=== PATIENT | female | born 1990 | race Two or more races ===

== ENCOUNTER 2018-12-22 12:40 | Emergency (ER) | payer OTHER ==
[~2018-12-22] VITALS: Ht 170.2 cm; Wt 114.3 kg
--- NOTE | 2018-12-22 12:46 | NUR ---
PT COLE FROM HOME OF S/I, PER REPORT SHE WAS TRYING TO HURT HER DAUGHTER/MOM, PT TO BED 13, SI PRECAUTIONS STARTED, PT NOT ANSWERING QUESTIONS APPROPRIETY, -SOB, NAD NOTED, PT ON MONTIOR, PENDING ER PROVIDER BIN, WILL CALL NURSING SUP FOR SITTER
--- NOTE | 2018-12-22 12:50 | NUR ---
[facility]ET[facility],HOUSE SUP, CALLED FOR A SITTER
[2018-12-22 13:42] LABS: BASOPHILS % (AUTO) 0.5 % (0.0-2.0); EOSINOPHILS % (AUTO) 0.1 % (0.0-6.0); HEMATOCRIT 40 % (33-45); HEMOGLOBIN 13.4 g/dL (11.5-14.8); LYMPHOCYTES # (AUTO) 1.5 /CMM (0.8-4.8); LYMPHOCYTES % (AUTO) 15.3 % (20.0-44.0); MEAN CORPUSCULAR HGB CONC 34 g/dl (31.0-36.0); MEAN CORPUSCULAR VOLUME 85 fL (82-100); MONOCYTES # (AUTO) 1.1 /CMM (0.1-1.30); MONOCYTES % (AUTO) 11.6 % (2.0-12.0); NEUTROPHILS # (AUTO) 7.1 /CMM (1.8-8.9); NEUTROPHILS % (AUTO) 72.5 % (43.0-81.0); PLATELET COUNT (AUTO) 327 /CMM (150-450); RED BLOOD CELL COUNT(AUTO) 4.67 MIL/uL (4.0-5.2); WHITE BLOOD COUNT (AUTO) 9.7 K/uL (4.3-11.0)
--- NOTE | 2018-12-22 13:44 | NUR ---
SITTER AT BEDSIDE, ALL BELONGINGS IN UTILITY ROOM FOR S/I PRECAUTIONS
[2018-12-22 13:54] LABS: APPEARANCE,URINE Clear (CLEAR); BILIRUBIN,URINE SMALL (NEGATIVE); BLOOD, URINE Small Ery/uL (NEGATIVE); COLOR,URINE Yellow (YELLOW); KETONES,URINE 40 (NEGATIVE); LEUKOCYTE ESTERASE ,URINE Negative (NEGATIVE); NITRITE, URINE Negative (NEGATIVE); PH,URINE 5.5 (5.0-8.0); PROTEIN,URINE 100 mg/dl (NEGATIVE); UGLUCOSE Negative (NEGATIVE); UROBILINOGEN,URINE 0.2 EU/dL (0.2)
[2018-12-22 13:56] LABS: BACTERIA,URINE Few /HPF (None Seen); SQUAMOUS EPITHELIAL CELL,UR Few /HPF (None Seen)
[2018-12-22 13:57] LABS: CALCIUM, SERUM 9.2 mg/dL (8.5-10.1); CARBON DIOXIDE 26 mmol/L (21-32); CHLORIDE 102 mmol/L (98-107); CREATININE 0.7 mg/dL (0.6-1.3); GLUCOSE 89 mg/dL (74-106); POTASSIUM 3.6 mmol/L (3.5-5.1); SODIUM SERUM 140 mmol/L (136-145); UREA NITROGEN, BLOOD 11 mg/dL (7-18)
[2018-12-22 14:10] LABS: ALANINE AMINOTRANSFERASE 84 U/L (12-78); ALBUMIN 4.1 g/dL (3.4-5.0); ALKALINE PHOSPHATASE 76 U/L (46-116); ASPARTATE AMINOTRANSFERASE 46 U/L (15-37); BILIRUBIN,DIRECT 0.1 mg/dL (0.0-0.2); BILIRUBIN,TOTAL 0.4 mg/dL (0.2-1.0); SALICYLATE 3.6 mg/dL (2.8-20.0); TOTAL PROTEIN, SERUM 8.1 g/dL (6.4-8.2)
[2018-12-22 14:11] LABS: ACETAMINOPHEN 0 ug/ml (10-30); ALCOHOL, BLOOD < 3 mg/dL (0-0)
--- NOTE | 2018-12-22 14:19 | NUR ---
REPORT REC'D FROM MERRICK BERGERON FOR BAKARI.
--- NOTE | 2018-12-22 14:35 | NUR ---
PT APPEARS ANXIOUS. PT IS SITTING UP IN THE BED AND IS CONNECTED TO THE MONITOR. PT IS IN ONE [place]LON RESTRAINT ON RT WRIST. SITTER IS AT THE BEDSIDE AND PT'S VSS. RESP EVEN AND UNLABORED. PT IS NOT CLEARED FOR EVAL AT THIS TIME.
--- NOTE | 2018-12-22 15:00 | NUR ---
PT STATED THAT SHE HAD TO USE THE BATHROOM. WAS AMBULATED TO THE BATHROOM AND RETURNED TO ER 13 AND WAS PLACED BACK ON LT WRIST RESTRAINT.
--- NOTE | 2018-12-22 15:34 | NUR ---
CALLED DIETARY RE: FOOD TRAY FOR PT.
[2018-12-22] MEDS ORDERED: LORAZEPAM INJ 2 MG/ML VIAL ONE (15:59)
[2018-12-22] MEDS ORDERED: LORAZEPAM INJ 2 MG/ML VIAL IM ONE (16:00)
--- NOTE | 2018-12-22 16:02 | NUR ---
PT STATED THAT SHE HAS TO USE THE BATHROOM. LT WRIST RESTRAINT REMOVED AND PT AMBULATED TO THE BATHROOM WITH A STEADY GAIT.
--- NOTE | 2018-12-22 16:12 | NUR ---
PT RETURNED TO ER 13 AND WAS PLACED BACK ON THE LT WRIST RESTRAINT.
--- NOTE | 2018-12-22 16:19 | NUR ---
PT APPEARS TO BE RESTING COMFORTABLY. PT STATED THAT SHE IS FEELING MUCH BETTER.
--- NOTE | 2018-12-22 17:15 | NUR ---
PT AMBULATED TO THE BATHROOM WITH A STEADY GAIT. PT RETURNED TO ER 13 AND WAS PLACED BACK IN THE LT WRIST RESTRAINT.
--- NOTE | 2018-12-22 18:14 | NUR ---
DIETARY WAS CALLED AND DINNER TRAY WAS ORDERED.
--- NOTE | 2018-12-22 18:14 | NUR ---
KHURRAM OWEN ARRIVED AND IS REVIEWING THE PT'S CHART.
--- NOTE | 2018-12-22 19:15 | NUR ---
REPORT GIVEN TO MERRICK SPANGLER FOR BAKARI.
--- NOTE | 2018-12-22 19:16 | NUR ---
KHURRAM OWEN IS AT THE BEDSIDE SPEAKING TO THE PT.
--- NOTE | 2018-12-22 19:45 | NUR ---
PT WENT TO THE BATHROOM. RESTRAINTS RELEASED. PT CALM AND NO AGITATION OBSERVED.
--- NOTE | 2018-12-22 20:52 | NUR ---
CALLED [facility] FOR BLS TRANSPORT. ETA 45 MIN TRIP# [phone]
--- NOTE | 2018-12-22 21:04 | NUR ---
REPORT GIVEN TO HUSSAIN FROM [facility] . AWAITING TRANSFER TEAM.
[2018-12-22 22:07] VITALS: BP 127/70
== END 2018-12-22 22:10 ==
LOC: ER 12:42
DX: R45.851 Suicidal ideations (principal); F15.10 Other stimulant abuse, uncomplicated; F43.10 Post-traumatic stress disorder, unspecified; F32.9 Major depressive disorder, single episode, unspecified; F19.10 Other psychoactive substance abuse, uncomplicated; R41.82 Altered mental status, unspecified; R00.0 Tachycardia, unspecified
CPT/HCPCS: 36415; 80048; 80076; 80307; 80329; 81001; 84703; 85025; 96372; 99285; G0480; J2060; 80305; 81000-TC